=== PATIENT | male | born 2000 | race Caucasian/White ===

== ENCOUNTER 2020-02-22 20:17 | Emergency (ER) | payer SELFPAY ==
[2020-02-22 20:24] VITALS: BP 130/85; PULSE 98; RESP 16; TEMP 35.7; O2SAT 94; BMI 40.6
--- NOTE | 2020-02-22 22:09 | ED_ITS ---
HPI - General Adult General: Chief complaint: General Medical Stated complaint: bleeding belly button Time Seen by Provider: 02/22/20 22:02 Source: patient Mode of arrival: ambulatory Limitations: no limitations History of Present Illness: HPI narrative: Patient has tenderness, erythema and light drainage from the navel for the last 2 to 3 days. Patient appears well. Patient appears no acute distress. Review of Systems General: Reports: 10 or more systems reviewed and unremarkable except in HPI and below Skin/Breast: Reports: non-healing lesions Physical Exam Const: COMMON NORMALS: no acute distress and patient oriented x3 GENERAL APPEARANCE: cooperative HENMT: COMMON NORMALS: normocephalic and Normal external nose present HEAD & SCALP: normal to inspection and normocephalic NOSE: Normal external nose present MOUTH: Normal oral and palatal mucosa present Eye: GENERAL EYE: appearance normal, both eyes and all related structures Neck/C-Spine: COMMON NORMALS: full ROM Chest: COMMONS NORMALS: normal inspection of the chest Resp: COMMON NORMALS: normal respiratory effort EFFORT & INSPECTION: Yes able to speak in complete sentences Cardio: COMMON NORMALS: regular rate and regular rhythm RATE: regular rate RHYTHM: regular rhythm GI: COMMON NORMALS: non-tender Back/Pelvis: COMMON NORMALS: thoracic and lumbar spine normal to inspection Extremity: COMMON NORMALS: normal to inspection Neuro: COMMON NORMALS: patient oriented x3 and moves all extremities Psych: COMMON NORMALS: mental status grossly normal and cooperative Skin: NARRATIVE SKIN EXAM: Redness and drainage from the navel. Course Vital Signs: Vital signs: Vital Signs Temperature 96.3 F L 02/22/20 20:24 Pulse Rate 98 02/22/20 20:24 Respiratory Rate 16 02/22/20 20:24 Blood Pressure 130/85 02/22/20 20:24 Pulse Oximetry 94 02/22/20 20:24 MDM - General Adult MDM Narrative: Medical decision making narrative: Patient comes in with irritation to the navel. On exam patient has some erythema to the navel but does not extend out beyond its borders. Some drainage is also noted to the area. Differential diagnosis includes but not limited to candidiasis, cellulitis, contact dermatitis. Reviewed exam with patient with recommendations for treatment. Patient reports understanding agreed to plan. Discharge Plan Discharge Patient Disposition: Home Clinical Impression: Cellulitis of umbilicus Condition: Stable Prescriptions: New Bactrim DS 800-160 mg tablet 1 tab PO DAILY 10 Days Qty: 20 RF: 0 nystatin 100,000 unit/gram ointment 1 applic TOPICAL BID Qty: 15 RF: 0 Discharge Orders: Discharge Order (Routine); Ordered 02/22/20 Ordered By: Laci Marion Referrals: Eli Lovett FNP [Primary Care Provider] - Discharge Diet: Usual diet Discharge Activity: Increase activity as tolerated Patient Instructions: Cellulitis (ED) Activity Restrictions/Additional Instructions: Use medication as directed. Rinse daily but with copious amounts of water during showers. Try to avoid soap to the bellybutton. Use nystatin ointment twice a day until healed. You should see improvement within 7 days if not follow-up with primary care for recheck. Take antibiotic as directed. Return to the emergency department for new concerns. Coding Level of Care Code ED Commercial Loan Assistant for Jamison Blank
[2020-02-22] MEDS: sulfamethoxazole-trimeth DS 160-800 mg Tablet 1 TAB PO (22:20)
== END 2020-02-22 22:24 | disposition home or self-care (01) ==
PROVIDERS: Emergency Provider Nurse Practitioner Family; PCP Nurse Practitioner Family
DX: L03.316 Cellulitis of umbilicus (principal)
CPT/HCPCS: 12345; 99281; 99283

== ENCOUNTER → 2020-03-24 18:16 | Outpatient (BNVA) | payer OTHER, SELFPAY | PROVIDERS: PCP Nurse Practitioner Family; Visit Provider Nurse Practitioner | DX: Z20.828 Contact with and (suspected) exposure to other viral communicable diseases (principal) | CPT/HCPCS: 87635 ==

== ENCOUNTER 2020-04-21 06:08 | Emergency (ER) | payer SELFPAY ==
[2020-04-21 06:18] VITALS: BP 140/81; PULSE 81; RESP 17; TEMP 36.6; O2SAT 98; BMI 40.6
[2020-04-21 06:27] VITALS: BP 124/96; PULSE 94; RESP 18; O2SAT 96
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
[2020-04-21 07:47] VITALS: BP 165/100; PULSE 87; RESP 20; O2SAT 95
== END 2020-04-21 07:52 | disposition home or self-care (01) ==
PROVIDERS: Emergency Provider Family Medicine; PCP Nurse Practitioner Family
DX: R68.84 Jaw pain (principal); Y04.2XXA Assault by strike against or bumped into by another person, initial encounter
CPT/HCPCS: 12345; 70486; 99281; 99282

== ENCOUNTER → 2021-03-27 18:25 | Outpatient (BNVA) | payer OTHER, SELFPAY | PROVIDERS: PCP Nurse Practitioner Family; Visit Provider Registered Nurse Neonatal Intensive Care | DX: Z20.822 Contact with and (suspected) exposure to COVID-19 (principal) | CPT/HCPCS: 87635 ==

== ENCOUNTER 2022-01-16 10:54 | Emergency (ER) | payer SELFPAY ==
[2022-01-16 11:01] VITALS: BP 154/96; PULSE 79; RESP 16; TEMP 36.5; O2SAT 97; BMI 43.4
--- NOTE | 2022-01-16 11:12 | PC.NURSE ---
Pt was awaken about 0800 this morning with a sharp stabbing chest pain in the center of his chest that raidated into his back. He states he vomited 3-4 times this morning, he denies any injuries or any chest pain prior to this.
--- NOTE | 2022-01-16 11:15 | CTR_ITS ---
PROCEDURE INFORMATION: Exam: CTA Chest With Contrast Exam date and time: 01/16/2022 12:07 PM Age: 21 years old Clinical indication: Sternal or substernal pain; Additional info: Dissection TECHNIQUE: Imaging protocol: Computed tomographic angiography of the chest with contrast. 3D rendering (Not supervised by radiologist): MIP and/or 3D reconstructed images were created by the technologist. Radiation optimization: All CT scans at this facility use at least one of these dose optimization techniques: automated exposure control; mA and/or kV adjustment per patient size (includes targeted exams where dose is matched to clinical indication); or iterative reconstruction. Contrast material: OMNIPAQUE 350; Contrast volume: 95 ml; Contrast route: INTRAVENOUS (IV); COMPARISON: CR (CHEST, ) 01/16/2022 11:29 AM RADIATION DOSE METRICS: Total DLP (mGy-cm): 1357.08 FINDINGS: Pulmonary arteries: No central filling defects within the main pulmonary arteries through the first order segmental branches to suggest pulmonary embolism. Distal to this, the examination is inconclusive secondary to inadequate opacification of the distal pulmonary arteries. Aorta: Unremarkable. No aortic aneurysm. No aortic dissection. Lungs: Unremarkable. No consolidation. No masses. Pleural spaces: Unremarkable. No pneumothorax. No pleural effusion. Heart: Unremarkable. No cardiomegaly. No pericardial effusion. Lymph nodes: Unremarkable. No enlarged lymph nodes. Liver: There is a diffuse decrease in hepatic parenchymal density, consistent with fatty infiltration. Bones/joints: Unremarkable. No acute fracture. Soft tissues: Unremarkable. CT/CT angio chest [id number] IMPRESSION: 1. No central filling defects within the main pulmonary arteries through the first order segmental branches to suggest pulmonary embolism. Distal to this, the examination is inconclusive secondary to inadequate opacification of the distal pulmonary arteries. 2. Fatty infiltration of the liver.
--- NOTE | 2022-01-16 11:15 | XRR_ITS ---
PROCEDURE INFORMATION: Exam: XR Chest Exam date and time: 01/16/2022 11:29 AM Age: 21 years old Clinical indication: Pain; Chest pressure; Additional info: Chest pain TECHNIQUE: Imaging protocol: Radiologic exam of the chest. Views: 1 view. COMPARISON: CR Chest 1 [place] [id number] 07/22/2017 1:35 AM FINDINGS: Lungs: Unremarkable. No consolidation. Pleural spaces: Unremarkable. No pleural effusion. No pneumothorax. Heart/Mediastinum: Unremarkable. No cardiomegaly. Bones/joints: Unremarkable. XR/XR chest 1V portable [id number] IMPRESSION: No acute findings.
--- NOTE | 2022-01-16 11:16 | ECG_ITS ---
[facility] Test Date: 2022-01-16 Pat Name: Jane Saleh Department: Room: Gender: Male Manager Diversity: : 2000 Requested By: Wood Sims Order Number: [id number] Pam MD: Marlen Hernadez M.D. Measurements Intervals [place] Rate: 69 P: 44 ND: 138 QRS: 81 QRSD: 96 T: 55 QT: 368 QTc: 397 Interpretive Statements SINUS RHYTHM INCOMPLETE RIGHT BUNDLE BRANCH BLOCK [90+ ms QRS DURATION, TERMINAL R IN V1/V2, 40+ ms S IN I/aVL/V4/V5/V6] Compared to ECG 01/16/2022 10:58:55 Incomplete right bundle-branch block now present Sinus arrhythmia no longer present Electronically Signed On 01-16-2022 20:17:11 CDT by Marlen Hernadez M.D. [id number]
--- NOTE | 2022-01-16 11:17 | ED_ITS ---
HPI - Chest Pain General: Chief Complaint: Chest Pain Stated Complaint: Chest pain, vomitting, tired Time Seen by Provider: 01/16/22 11:05 History of Present Illness: 21-year-old presents due to chest pain. States this started this morning. Reports it is sharp and radiates to the back and between the shoulder blades. Does report some nausea and nonbloody nonbilious vomiting. Denies any abdominal pain diarrhea or constipation. Denies any exertional pleuritic component to pain. Denies lower extremity pain or swelling fevers or chills. Review of Systems Narrative: - CONSTITUTIONAL: Denies weight loss, fever and chills. - HEENT: Denies changes in vision and hearing. - RESPIRATORY: Denies SOB and cough. - CV: As above - GI: As above - : Denies dysuria and urinary frequency. - MSK: Denies myalgia and joint pain. - SKIN: Denies rash and pruritus. - NEUROLOGICAL: Denies headache, weakness, numbness and syncope. - PSYCHIATRIC: Denies suicidal ideation Physical Exam Narrative: EXAM NARRATIVE: - GENERAL: Alert and oriented x 3. No acute distress. Well-nourished. - EYES: EOMI. Anicteric. - HENT: Atraumatic, no C-spine tenderness. Moist mucous membranes. No scleral icterus. No cervical lymphadenopathy. - LUNGS: Clear to auscultation bilaterally. No accessory muscle use. Equal lung sounds bilaterally. No respiratory distress. - CARDIOVASCULAR: Regular rate and rhythm. No murmur. No JVD. - ABDOMEN: Soft, non-tender and non-distended. Negative CVA tenderness bilaterally, no rebound or guarding, negative Benites sign. No palpable masses. - EXTREMITIES: No edema. Non-tender. - SKIN: No rashes or lesions. Warm. - NEUROLOGIC: No meningismus or focal neurological deficits. CN II-XII grossly intact. - PSYCHIATRIC: Cooperative. Appropriate mood and affect. Course Vital Signs: Vital signs: Vital Signs Temperature 97.7 F 01/16/22 11:01 Pulse Rate 74 01/16/22 12:00 Respiratory Rate 16 01/16/22 12:00 Blood Pressure 198/94 01/16/22 12:00 Pulse Oximetry 97 01/16/22 12:00 MDM - Chest Pain Medical Decision Making 21-year-old presents with chest pain nausea and vomiting. Denies any abdominal pain. Physical exam unremarkable. Does complain pain radiates to his back however. CTA does not reveal any sign of dissection PE or other acute abnormality. EKG and troponins do not reveal any sign of acute ischemia or other acute abnormality. Lab work unremarkable except for very minor LFT elevation for which outpatient follow-up was recommended however he has a negative Benites sign and no abdominal tenderness. At this time do not see any signs of obstruction or other acute abdominal etiology and I do believe advanced abdominal imaging is required. Tolerated p.o. challenge after Zofran. Prescription for Pepcid and Zofran provided. At this time I believe patient would be safe for discharge and outpatient follow-up. Return precautions provided. Plan was reviewed with the patient who expressed understanding. Questions answered. Patient will follow up with PCP. Patient discharged in stable condition. Lab Data : 01/16/22 11:54 01/16/22 11:54 Radiology Impressions Chest CTA 01/16/22 11:15 IMPRESSION: 1. No central filling defects within the main pulmonary arteries through the first order segmental branches to suggest pulmonary embolism. Distal to this, the examination is inconclusive secondary to inadequate opacification of the distal pulmonary arteries. 2. Fatty infiltration of the liver. Chest X-Ray 01/16/22 11:15 IMPRESSION: No acute findings. Laboratory Results WBC 9.2 10^3/uL (4.0-10.0) 01/16/22 11:54 RBC 5.08 10^6/uL (4.1-5.3) 01/16/22 11:54 Hgb 14.4 g/dL (11.7-16.6) 01/16/22 11:54 Hct 45.4 % (42.0-52.0) 01/16/22 11:54 MCV 89.4 fl (80-94) 01/16/22 11:54 MCH 28.3 pg (28.0-34.0) 01/16/22 11:54 MCHC 31.7 g/dL (30.0-36.0) 01/16/22 11:54 RDW 13.0 % (12.1-15.1) 01/16/22 11:54 Plt Count 237 10^3/cmm (130-400) 01/16/22 11:54 MPV 10.4 fL (7.4-10.4) 01/16/22 11:54 Neut % (Auto) 66.8 % 01/16/22 11:54 Lymph % (Auto) 21.6 % 01/16/22 11:54 [place] % (Auto) 9.0 % 01/16/22 11:54 Eos % (Auto) 1.7 % 01/16/22 11:54 Baso % (Auto) 0.4 % 01/16/22 11:54 Neut # (Auto) 6.10 10^3/uL (1.8-7.7) 01/16/22 11:54 Lymph # (Auto) 2.0 10^3/uL (0.8-4.8) 01/16/22 11:54 [place] # (Auto) 0.8 10^3/uL (0.2-0.9) 01/16/22 11:54 Eos # (Auto) 0.2 10^3/uL (0.0-0.8) 01/16/22 11:54 Baso # (Auto) 0.0 10^3/uL (0.0-0.1) 01/16/22 11:54 Nucleated RBC % (auto) 0 % 01/16/22 11:54 Nucleated RBCs # 0.0 /100WBC 01/16/22 11:54 Sodium 132 mmol/L (136-145) L 01/16/22 11:54 Potassium 3.9 mmol/L (3.5-5.1) 01/16/22 11:54 Chloride 98 mmol/L (98-107) 01/16/22 11:54 Carbon Dioxide 22 mmol/L (22-29) 01/16/22 11:54 Anion Gap 15.9 (5-19) 01/16/22 11:54 BUN 17 mg/dL (6-20) 01/16/22 11:54 Creatinine 0.9 mg/dL (0.7-1.2) 01/16/22 11:54 GFR Calculation 104.6 mL/min (90-130) 01/16/22 11:54 Glucose 89 mg/dL (65-115) 01/16/22 11:54 Calculated Osmolality 275 mOsm/kg (285-295) L 01/16/22 11:54 Calcium 9.7 mg/dL (8.5-10.5) 01/16/22 11:54 Total Bilirubin 0.2 mg/dL (0.15-1.2) 01/16/22 11:54 AST 49 U/L (0-40) H 01/16/22 11:54 ALT 94 U/L (0-41) H 01/16/22 11:54 Alkaline Phosphatase 98 IU/L (40-130) 01/16/22 11:54 Troponin T Baseline 6 ng/L (0-15) 01/16/22 11:54 Total Protein 7.4 g/dL (6.6-8.7) 01/16/22 11:54 Albumin 4.5 g/dL (3.5-5.2) 01/16/22 11:54 Globulin 2.9 g/dL (1.3-4.6) 01/16/22 11:54 Lipase 31 U/L (13-60) 01/16/22 11:54 SARS-CoV-2 Ag (Rapid) Negative (Negative) 01/16/22 12:44 EKG Data EKG 1: Other EKG comments: Normal sinus rhythm with sinus arrhythmia, rate of 73, no signs of Brugada, WPW, prolonged QT, HOCM, or acute ischemia Discharge Plan Discharge Patient Disposition: Home Clinical Impression: Chest pain, Nausea Condition: Stable Prescriptions: New Pepcid 20 mg tablet 20 mg PO DAILY 14 Days Qty: 14 0RF ondansetron 4 mg tablet,disintegrating 4 mg PO TID PRN (Reason: nausea and vomiting) 3 Days Qty: 10 0RF Discharge Orders: Discharge ED (Routine); Ordered 01/16/22 Ordered By: Wood Sims Referrals: Bony,Eli RECORD MAKER [Primary Care Provider] - 1-3 days Patient Instructions: Chest Pain (ED), Acute Nausea and Vomiting (ED), Opioid Safety Coding Level of Care Code ED Resolution Specialist for Jamison Blank
[2022-01-16] MEDS: sodium chloride 0.9% 1,000 ML 999 ML IV (11:53)
[2022-01-16] MEDS: ondansetron 2 mg/ML SDV 2 mL 4 MG IVP (11:53)
[2022-01-16] MEDS: lidocaine 2% viscous 15 ML, aluminum-mag hydrox-simethicon 30 ML, sucralfate oral liq 1 GM PO (11:58)
[2022-01-16 12:00] VITALS: BP 198/94; PULSE 74; RESP 16; O2SAT 97
[2022-01-16 12:01] LABS: Basophils % 0.4 %; Eosinophils # 0.2 10^3/uL (0.0-0.8); Eosinophils % 1.7 %; Hematocrit 45.4 % (42.0-52.0); Hemoglobin 14.4 g/dL (11.7-16.6); Lymphocytes % 21.6 %; Mean Corpuscular HGB Conc 31.7 g/dL (30.0-36.0); Mean Corpuscular Hemoglobin 28.3 pg (28.0-34.0); Mean Corpuscular Volume 89.4 fl (80-94); Mean Platelet Volume 10.4 fL (7.4-10.4); Monocytes # 0.8 10^3/uL (0.2-0.9); Neutrophils % 66.8 %; Nucleated Red Blood Cells % 0 %; Platelet Count 237 10^3/cmm (130-400); Red Blood Count 5.08 10^6/uL (4.1-5.3); White Blood Count 9.2 10^3/uL (4.0-10.0)
[2022-01-16 12:24] LABS: Troponin(5th) Baseline 6 ng/L (0-15)
[2022-01-16 12:31] LABS: Alanine Aminotransferase 94 U/L (0-41); Albumin Level 4.5 g/dL (3.5-5.2); Alkaline Phosphatase 98 IU/L (40-130); Anion Gap 15.9 (5-19); Aspartate Amino Transferase 49 U/L (0-40); Blood Urea Nitrogen 17 mg/dL (6-20); Calcium 9.7 mg/dL (8.5-10.5); Carbon Dioxide 22 mmol/L (22-29); Chloride 98 mmol/L (98-107); Globulin 2.9 g/dL (1.3-4.6); Glomerular Filtration Rate 104.6 mL/min (90-130); Glucose 89 mg/dL (65-115); Lipase 31 U/L (13-60); Osmolality Calculated 275 mOsm/kg (285-295); Potassium 3.9 mmol/L (3.5-5.1); Sodium 132 mmol/L (136-145); Total Bilirubin 0.2 mg/dL (0.15-1.2); Total Protein 7.4 g/dL (6.6-8.7)
[2022-01-16] MEDS: acetaminophen 500 mg Tablet PO (12:57)
--- NOTE | 2022-01-16 13:16 | ECG_ITS ---
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 Measurements Intervals [place] Rate: 76 P: 62 WV: 152 QRS: 81 QRSD: 99 T: 47 QT: 343 QTc: 387 Interpretive Statements SINUS RHYTHM WITH MARKED SINUS ARRHYTHMIA POSSIBLE RIGHT VENTRICULAR CONDUCTION DELAY [RSR (QR) IN V1/V2] Compared to ECG 01/16/2022 11:36:01 Incomplete right bundle-branch block no longer present Electronically Signed On 01-16-2022 20:21:33 CDT by Marlen Hernadez M.D. [id number]
[2022-01-16 14:04] LABS: SARS Covid-2 Antigen Negative (Negative)
[2022-01-16 14:40] VITALS: BP 140/70; PULSE 87; RESP 16; O2SAT 97
[2022-01-16 14:44] VITALS: BP 140/70; PULSE 82; RESP 16; O2SAT 95
[2022-01-16 14:59] LABS: Troponin 5 2HR Delta 0 ABS# (0-10)
--- NOTE | 2022-01-16 17:16 | ECG_ITS ---
[facility] Test Date: 2022-01-16 Pat Name: Jane Saleh Department: Room: Gender: Male Shelter Monitor: : 2000 Requested By: Wood Sims Order Number: [id number] Pam MD: Marlen Hernadez M.D. Measurements Intervals [place] Rate: 73 P: 58 NM: 142 QRS: 78 QRSD: 96 T: 51 QT: 356 QTc: 394 Interpretive Statements SINUS RHYTHM WITH SINUS ARRHYTHMIA POSSIBLE RIGHT VENTRICULAR CONDUCTION DELAY [RSR (QR) IN V1/V2] INTERPRETATION BASED ON A DEFAULT AGE OF 40 YEARS Compared to ECG 05/04/2019 15:46:48 No significant changes Electronically Signed On 01-16-2022 20:21:28 CDT by Marlen Hernadez M.D. [id number]
== END 2022-01-16 14:46 | disposition home or self-care (01) ==
PROVIDERS: Emergency Provider Emergency Medicine; PCP Nurse Practitioner Family
DX: R07.9 Chest pain, unspecified (principal); R11.0 Nausea; Z20.822 Contact with and (suspected) exposure to COVID-19
CPT/HCPCS: 71045; 71275; 80053; 83690; 84484; 85025; 87426; 93005; 96374; 99285; J2405; J7030; Q9967

== ENCOUNTER 2022-01-24 15:59 | Emergency (ER) | payer SELFPAY ==
[2022-01-24] VITALS (7 sets, daily range): BP systolic 131–156; BP diastolic 83–98; PULSE 75–97; RESP 16; TEMP 36.6; O2SAT 22–96; BMI 43.4
--- NOTE | 2022-01-24 16:46 | XRR_ITS ---
PROCEDURE INFORMATION: Exam: XR Abdomen Exam date and time: 01/24/2022 4:55 PM Age: 22 years old Clinical indication: Abdominal pain; Prior surgery; Surgery date: 6+ months; Surgery type: Appy; Patient HX: C/O epigastric pain w n/v/d TECHNIQUE: Imaging protocol: Radiologic exam of the abdomen. Views: Frontal supine view of the abdomen. 1 View. COMPARISON: CT abdomen pelvis w con* [id number] 03/15/2018 5:14 AM FINDINGS: Gastrointestinal tract: Normal. No bowel dilation. Bones/joints: Unremarkable. XR/XR KUB portable [id number] IMPRESSION: No acute findings.
--- NOTE | 2022-01-24 16:50 | W.ED.ABDPA2 ---
Documented by User: Medardo DO Raymon 01/24/22 17:55 HPI - Abdominal Pain General: Chief Complaint: Abdominal Pain Stated Complaint: Upper ABD pain Time Seen by Provider: 01/24/22 16:42 History of Present Illness: Patient presents with an episode of epigastric pain and then vomiting. He reports that that was earlier today then he had a second episode of a similar epigastric pain that he vomited improved. Then he had a another round epigastric pain about 15 minutes after that and the pain resolved. Patient presents to be evaluated. He at this time he denies any pain. He denies any nausea. Patient denies any fever, chills, cough, shortness of breath. Patient reports any new foods. Patient was started on famotidine and reports he also started on Nexium. Patient denies any diarrhea. He has no known sick contacts. Associated Symptoms: Reports nausea and vomiting; Denies chills, constipation, diarrhea, dysuria and fever(s) Review of Systems Const: Denies: fever(s), chills or malaise Eyes: Denies: change in vision ENMT: Denies: throat pain Card: Denies: chest pain or palpitations Resp: Denies: dyspnea or productive cough GI: Reports: abdominal pain, nausea and vomiting; Denies: diarrhea or constipation : Denies: flank pain, difficulty urinating or dysuria Musc: Reports: back pain; Denies: neck pain or extremity swelling Neuro: Denies: headache(s) or dizziness Psych: Denies: anxiety or depression Physical Exam Const: COMMON NORMALS: no acute distress, patient oriented x3, no limitations, healthy appearing and alert Resp: COMMON NORMALS: normal respiratory effort, No retractions, No use of accessory muscles and clear to auscultation bilaterally AUSCULTATION: clear to auscultation bilaterally Cardio: COMMON NORMALS: regular rate and regular rhythm RATE: regular rate RHYTHM: regular rhythm GI: COMMON NORMALS: Soft to palpation PALPATION: Yes Soft to palpation and Yes Tenderness to palpation present (GI) (Minimal) Details: other (Epigastric) : COMMON NORMALS: Yes no CVA tenderness BLADDER/KIDNEY EXAM: Yes no CVA tenderness Back/Pelvis: COMMON NORMALS: no CVA tenderness and thoraco-lumbar ROM normal Extremity: COMMON NORMALS: normal to inspection, full ROM and capillary refill normal Neuro: COMMON NORMALS: patient oriented x3, CN's II-XII intact bilaterally, moves all extremities and no focal motor deficits SENSORIUM/ORIENTATION: Yes alert Psych: COMMON NORMALS: mental status grossly normal, Normal thought process present and cooperative THOUGHT PROCESS: Normal thought process present Skin: COMMON NORMALS: no rashes or lesions noted and no wounds GENERAL SKIN EXAM: no rashes or lesions noted Course Vital Signs: Vital signs: Vital Signs Temperature 98 F 01/24/22 16:12 Pulse Rate 84 01/24/22 19:00 Respiratory Rate 16 01/24/22 16:12 Blood Pressure 156/97 01/24/22 19:00 Pulse Oximetry 95 01/24/22 18:00 Oxygen Delivery Me thod 01/24/22 18:00 MDM - Abdominal Pain Medical Decision Making Patient with no further epigastric pain or vomiting while in the ER. Patient with negative chest x-ray. Patient lipase and CMP is still pending. Patient to be handed over to Dr. Damon while waiting labs to determine if further outpatient evaluation will be needed. Patient was stable throughout stay Lab Data : 01/24/22 17:32 01/24/22 17:32 Labs/Radiology: Radiology Impressions KUB X-Ray 01/24/22 16:46 IMPRESSION: No acute findings. Laboratory Results WBC 9.6 10^3/uL (4.0-10.0) 01/24/22 17: RBC 4.98 10^6/uL (4.1-5.3) 01/24/22 17:32 Hgb 14.3 g/dL (11.7-16.6) 01/24/22 17:32 Hct 43.6 % (42.0-52.0) 01/24/22 17:32 MCV 87.6 fl (80-94) 01/24/22 17:32 MCH 28.7 pg (28.0-34.0) 01/24/22 17: MCHC 32.8 g/dL (30.0-36.0) 01/24/22 17: RDW 13.2 % (12.1-15.1) 01/24/22 17:32 Plt Count 230 10^3/cmm (130-400) 01/24/22 17:32 MPV 10.2 fL (7.4-10.4) 01/24/22 17:32 Neut % (Auto) 75.8 % 01/24/22 17:32 Lymph % (Auto) 15.1 % 01/24/22 17:32 Mcdowell % (Auto) 6.3 % 01/24/22 17:32 Eos % (Auto) 1.7 % 01/24/22 17:32 Baso % (Auto) 0.5 % 01/24/22 17:32 Neut # (Auto) 7.28 10^3/uL (1.8-7.7) 01/24/22 17:32 Lymph # (Auto) 1.5 10^3/uL (0.8-4.8) 01/24/22 17:32 [place] # (Auto) 0.6 10^3/uL (0.2-0.9) 01/24/22 17:32 Eos # (Auto) 0.2 10^3/uL (0.0-0.8) 01/24/22 17: Baso # (Auto) 0.1 10^3/uL (0.0-0.1) 01/24/22 17:32 Nucleated RBC % (auto) 0 % 01/24/22 17: Nucleated RBCs # 0.0 /100WBC 01/24/22 17:32 Sodium 140 mmol/L (136-145) 01/24/22 17:32 Potassium 4.3 mmol/L (3.5-5.1) 01/24/22 17:32 Chloride 101 mmol/L (98-107) 01/24/22 17:32 Carbon Dioxide 22 mmol/L (22-29) 01/24/22 17:32 Anion Gap 21.3 (5-19) H 01/24/22 17:32 BUN 13 mg/dL (6-20) 01/24/22 17:32 Creatinine 0.9 mg/dL (0.7-1.2) 01/24/22 17:32 GFR Calculation 103.7 mL/min (90-130) 01/24/22 17:32 Glucose 98 mg/dL (65-115) 01/24/22 17:32 Calculated Osmolality 290 mOsm/kg (285-295) 01/24/22 17:32 Calcium 9.6 mg/dL (8.5-10.5) 01/24/22 17:32 Total Bilirubin 0.2 mg/dL (0.15-1.2) 01/24/22 17:32 AST 90 U/L (0-40) H 01/24/22 17:32 ALT 130 U/L (0-41) H 01/24/22 17:32 Alkaline Phosphatase 107 IU/L (40-130) 01/24/22 17:32 Total Protein 7.7 g/dL (6.6-8.7) 01/24/22 17:32 Albumin 4.7 g/dL (3.5-5.2) 01/24/22 17:32 Globulin 3.0 g/dL (1.3-4.6) 01/24/22 17:32 Lipase 32 U/L (13-60) 01/24/22 17:32 Discharge Plan Discharge Patient Disposition: Home Clinical Impression: Abdominal pain Qualifiers: Abdominal location: epigastric Qualified Code(s): R10.13 - Epigastric pain Condition: Stable Prescriptions: New Prevacid 30 mg capsule,delayed release(DR/EC) 30 mg PO DAILY Qty: 30 0RF Carafate 1 gram tablet 1 g PO TID 28 Days Qty: 84 0RF Discontinued famotidine [Pepcid] 20 mg tablet 20 mg PO DAILY 14 Days Qty: 14 0RF Discharge Orders: Discharge ED (Routine); Ordered 01/24/22 Ordered By: Van Damon Referrals: Jignesh Wooten MD [Physician] - 7-10 days Lovett,TAMRA Benitez [Primary Care Provider] - 1-3 days Patient Instructions: Gastritis (ED), Abdominal Pain (ED) Activity Restrictions/Additional Instructions: Case management has been ordered to refer you to general surgery for possible upper endoscopy, as well as set you up for an outpatient ultrasound of the gallbladder. You should get a call from them at the beginning of the week. Medications as directed. Return for fever greater than 100, vomiting liquids or medications, worsening pain despite treatment, any other concerning symptoms. Coding Level of Care Code ED Cloth Mercerizer Back Tender for Chg Fwd Exam Comprehensive Documented by User: Van Chang Nelson, 01/24/22 19:57 HPI - Abdominal Pain General: Chief Complaint: Abdominal Pain Stated Complaint: Upper ABD pain Time Seen by Provider: 01/24/22 16:42 Course Vital Signs: Vital signs: Vital Signs Temperature 98 F 01/24/22 16:12 Pulse Rate 84 01/24/22 19:00 Respiratory Rate 16 01/24/22 16:12 Blood Pressure 156/97 01/24/22 19:00 Pulse Oximetry 95 01/24/22 18:00 Oxygen Delivery Me thod 01/24/22 18:00 MDM - Abdominal Pain Medical Decision Making Patient with no further epigastric pain or vomiting while in the ER. Patient with negative chest x-ray. Patient lipase and CMP is still pending. Patient to be handed over to Dr. Damon while waiting labs to determine if further outpatient evaluation will be needed. Patient was stable throughout stay 22-year-old male checked out to me by Dr. Ennis. He remains asymptomatic. CBC is normal. BMP is normal. He has a stable mild elevation in his LFTs, no elevation in his bilirubin. He is pain-free currently. Pepcid will be discontinued in favor of Prevacid plus Carafate, as this seems to be like a gastritis versus ulcer type situation. Ultrasound of the gallbladder has been ordered as an outpatient as well. Case management will refer him to surgery to see if EGD would be needed should he fail medical therapy. Lab Data : 01/24/22 17:32 01/24/22 17:32 Labs/Radiology: Radiology Impressions KUB X-Ray 01/24/22 16:46 IMPRESSION: No acute findings. Laboratory Results WBC 9.6 10^3/uL (4.0-10.0) 01/24/22 17:32 RBC 4.98 10^6/uL (4.1-5.3) 01/24/22 17:32 Hgb 14.3 g/dL (11.7-16.6) 01/24/22 17:32 Hct 43.6 % (42.0-52.0) 01/24/22 17:32 MCV 87.6 fl (80-94) 01/24/22 17:32 MCH 28.7 pg (28.0-34.0) 01/24/22 17: MCHC 32.8 g/dL (30.0-36.0) 01/24/22 17: RDW 13.2 % (12.1-15.1) 01/24/22 17:32 Plt Count 230 10^3/cmm (130-400) 01/24/22 17:32 MPV 10.2 fL (7.4-10.4) 01/24/22 17:32 Neut % (Auto) 75.8 % 01/24/22 17:32 Lymph % (Auto) 15.1 % 01/24/22 17:32 Mcdowell % (Auto) 6.3 % 01/24/22 17:32 Eos % (Auto) 1.7 % 01/24/22 17: Baso % (Auto) 0.5 % 01/24/22 17:32 Neut # (Auto) 7.28 10^3/uL (1.8-7.7) 01/24/22 17:32 Lymph # (Auto) 1.5 10^3/uL (0.8-4.8) 01/24/22 17:32 [place] # (Auto) 0.6 10^3/uL (0.2-0.9) 01/24/22 17:32 Eos # (Auto) 0.2 10^3/uL (0.0-0.8) 01/24/22 17:32 Baso # (Auto) 0.1 10^3/uL (0.0-0.1) 01/24/22 17: Nucleated RBC % (auto) 0 % 01/24/22 17: Nucleated RBCs # 0.0 /100WBC 01/24/22 17:32 Sodium 140 mmol/L (136-145) 01/24/22 17:32 Potassium 4.3 mmol/L (3.5-5.1) 01/24/22 17: Chloride 101 mmol/L (98-107) 01/24/22 17: Carbon Dioxide 22 mmol/L (22-29) 01/24/22 17:32 Anion Gap 21.3 (5-19) H 01/24/22 17:32 BUN 13 mg/dL (6-20) 01/24/22 17:32 Creatinine 0.9 mg/dL (0.7-1.2) 01/24/22 17:32 GFR Calculation 103.7 mL/min (90-130) 01/24/22 17:32 Glucose 98 mg/dL (65-115) 01/24/22 17:32 Calculated Osmolality 290 mOsm/kg (285-295) 01/24/22 17:32 Calcium 9.6 mg/dL (8.5-10.5) 01/24/22 17:32 Total Bilirubin 0.2 mg/dL (0.15-1.2) 01/24/22 17:32 AST 90 U/L (0-40) H 01/24/22 17:32 ALT 130 U/L (0-41) H 01/24/22 17:32 Alkaline Phosphatase 107 IU/L (40-130) 01/24/22 17:32 Total Protein 7.7 g/dL (6.6-8.7) 01/24/22 17:32 Albumin 4.7 g/dL (3.5-5.2) 01/24/22 17:32 Globulin 3.0 g/dL (1.3-4.6) 01/24/22 17:32 Lipase 32 U/L (13-60) 01/24/22 17:32 Discharge Plan Discharge Patient Disposition: Home Clinical Impression: Abdominal pain Qualifiers: Abdominal location: epigastric Qualified Code(s): R10.13 - Epigastric pain Condition: Stable Prescriptions: New Prevacid 30 mg capsule,delayed release(DR/EC) 30 mg PO DAILY Qty: 30 0RF Carafate 1 gram tablet 1 g PO TID 28 Days Qty: 84 0RF Discontinued famotidine [Pepcid] 20 mg tablet 20 mg PO DAILY 14 Days Qty: 14 0RF Discharge Orders: Discharge ED (Routine); Ordered 01/24/22 Ordered By: Van Damon Referrals: Jignesh Wooten MD [Physician] - 7-10 days Lovett,TAMRA Benitez [Primary Care Provider] - 1-3 days Patient Instructions: Gastritis (ED), Abdominal Pain (ED) Activity Restrictions/Additional Instructions: Case management has been ordered to refer you to general surgery for possible upper endoscopy, as well as set you up for an outpatient ultrasound of the gallbladder. You should get a call from them at the beginning of the week. Medications as directed. Return for fever greater than 100, vomiting liquids or medications, worsening pain despite treatment, any other concerning symptoms. Coding Level of Care Code ED Cloth Mercerizer Back Tender for Chg Fwd Exam Comprehensive
[2022-01-24 17:51] LABS: Basophils # 0.1 10^3/uL (0.0-0.1); Basophils % 0.5 %; Eosinophils # 0.2 10^3/uL (0.0-0.8); Eosinophils % 1.7 %; Hematocrit 43.6 % (42.0-52.0); Hemoglobin 14.3 g/dL (11.7-16.6); Lymphocytes # 1.5 10^3/uL (0.8-4.8); Lymphocytes % 15.1 %; Mean Corpuscular HGB Conc 32.8 g/dL (30.0-36.0); Mean Corpuscular Hemoglobin 28.7 pg (28.0-34.0); Mean Corpuscular Volume 87.6 fl (80-94); Mean Platelet Volume 10.2 fL (7.4-10.4); Monocytes # 0.6 10^3/uL (0.2-0.9); Monocytes % 6.3 %; Neutrophils # 7.28 10^3/uL (1.8-7.7); Neutrophils % 75.8 %; Nucleated Red Blood Cells % 0 %; Platelet Count 230 10^3/cmm (130-400); Red Blood Count 4.98 10^6/uL (4.1-5.3); Red Cell Distribution Width 13.2 % (12.1-15.1); White Blood Count 9.6 10^3/uL (4.0-10.0)
[2022-01-24 18:47] LABS: Albumin Level 4.7 g/dL (3.5-5.2); Alkaline Phosphatase 107 IU/L (40-130); Anion Gap 21.3 (5-19); Aspartate Amino Transferase 90 U/L (0-40); Blood Urea Nitrogen 13 mg/dL (6-20); Calcium 9.6 mg/dL (8.5-10.5); Carbon Dioxide 22 mmol/L (22-29); Chloride 101 mmol/L (98-107); Glomerular Filtration Rate 103.7 mL/min (90-130); Glucose 98 mg/dL (65-115); Lipase 32 U/L (13-60); Osmolality Calculated 290 mOsm/kg (285-295); Potassium 4.3 mmol/L (3.5-5.1); Sodium 140 mmol/L (136-145); Total Bilirubin 0.2 mg/dL (0.15-1.2); Total Protein 7.7 g/dL (6.6-8.7)
[2022-01-24 18:59] LABS: Alanine Aminotransferase 130 U/L (0-41)
--- NOTE | 2022-01-25 08:38 | DCPLANNER ---
Addendum entered by Tiana Jackson 03/19/22 12:57: Centralized scheduling stated waiting on project financial analyst clearance before scheduling. Addendum entered by Tiana Jackson 02/25/22 08:38: apartment hotel manager had message from clinic stating that due to patient having an outstanding bill that a letter was sent to patient to speak with project financial analyst before an appointment will be scheduled. Original Note: apartment hotel manager had message to schedule a follow up appointment for patient with general surgery. apartment hotel manager sent patients information to the front office staff at general surgery. Patients information will be printed and reviewed. Clinic will call patient with appointment information. apartment hotel manager also had message to schedule an outpatient US gallbladder. apartment hotel manager sent signed order to centralized scheduling who will call patient with appointment information.
== END 2022-01-24 20:34 | disposition home or self-care (01) ==
PROVIDERS: Student in an Organized Health Care Education/Training Program; Emergency Provider Emergency Medicine; PCP Nurse Practitioner Family
DX: R10.13 Epigastric pain (principal)
CPT/HCPCS: 74018; 80053; 83690; 85025; 99284

== ENCOUNTER 2022-08-23 10:22 | Inpatient (IN) | payer SELFPAY ==
[2022-08-23] VITALS (76 sets, daily range): BP systolic 112–224; BP diastolic 75–158; PULSE 84–126; RESP 14–18; TEMP 36.4; O2SAT 87–100; BMI 47.5
--- NOTE | 2022-08-23 10:35 | ECG_ITS ---
[facility] Test Date: 2022-08-23 Pat Name: Jane Saleh Department: Room: Gender: Male Manager Visual: : 2000 Requested By: Christiano Serna Order Number: [id number] Pam MD: Navneet Moser M.D. Measurements Intervals [place] Rate: 87 P: 54 [place]: 144 QRS: 74 QRSD: 97 T: 23 QT: 342 QTc: 413 Interpretive Statements SINUS RHYTHM NONSPECIFIC T-WAVE ABNORMALITY Compared to ECG 01/16/2022 13:11:12 T-wave abnormality now present Sinus arrhythmia no longer present Electronically Signed On 08-23-2022 17:30:06 CLINICAL SCIENTIST by Navneet Moser M.D. [id number]
--- NOTE | 2022-08-23 11:17 | US_ITS ---
WS: [id number] RIGHT UPPER QUADRANT ULTRASOUND HISTORY: RUQ abd pain COMPARISON: 05/04/2019 Liver: 17.5 cm in length. Mildly enlarged liver. Marked attenuation throughout the liver. The entire liver is not visualized. No bile duct dilatation. Portal Vein: Not adequately visualized. Gallbladder: Normally distended. No stones identified. CBD: 0.5 cm Pancreas: Not visualized. Right kidney: 12.8 cm in length. Normal size. Poorly visualized. Aorta and IVC: Unremarkable abdominal aorta and IVC. No ascites. US/US gall bladder [id number] IMPRESSION: 1. Limited RIGHT upper quadrant evaluation due to body habitus. 2. No cholelithiasis identified. 3. Mild hepatomegaly with diffuse hepatic steatosis. 4. Pancreas not visualized.
--- NOTE | 2022-08-23 11:17 | W.ED.ABDPA2 ---
HPI - Abdominal Pain General: Chief Complaint: Abdominal Pain Stated Complaint: Abd pain Time Seen by Provider: 08/23/22 10:37 Source: patient Mode of arrival: ambulatory History of Present Illness: 22-year-old male who presents to the emergency room with complaints of epigastric pain right upper quadrant pain for the last 2 days is progressively worsening. He localizes the pain to the right upper quadrant he has not really noticed anything that makes it better or worse he has not noticed any association with eating he denies any hematochezia melena hematemesis coffee-ground emesis no fever sweats or chills. Currently is reporting the pain at 10 of 10. The only previous abdominal surgery was an appendectomy. MD elicited complaint: abdominal pain Onset (ago): day(s) (2) Pain Consistency: constant Location: Epigastric and RUQ Quality: cramping and sharp Radiation: none Exacerbating factors: nothing Relieving factors: nothing Associated Symptoms: Reports anorexia, GI cramping, nausea and poor appetite; Denies belching, bloating, change in bowel habits, change in stool character, chills, coffee ground emesis, constipation, diarrhea, dyspepsia, dysuria, excessive flatus, fever(s), heartburn, hematochezia, hematuria, hematemesis, fecal incontinence, loose stools, melena, syncope and vomiting Review of Systems Const: Denies: fever(s) or chills ENMT: Denies: throat pain, ear or mastoid pain, nasal discharge or nasal congestion Card: Denies: syncope Resp: Denies: dyspnea, productive cough or non-productive cough GI: Reports: abdominal pain, nausea and GI cramping; Denies: vomiting, hematemesis, coffee ground emesis, heartburn, diarrhea, constipation, bloating, belching, excessive flatus, fecal incontinence, change in bowel habits, change in stool character, hematochezia or melena : Denies: dysuria, urinary frequency, urinary urgency or hematuria Skin/Breast: Denies: rash or pruritus PFSH ED PFSH: Medical History No significant past medical history Surgical History History of appendectomy Family History Other Cholelithiasis Social History Smoking and tobacco status: never smoked Alcohol intake: current Alcohol intake frequency: holidays/special occasions only Alcohol use comment: Last time had 4-5 beers during [employer]. Substance/Drug Use: never Physical Exam Const: GENERAL APPEARANCE: cooperative and comfortable ORIENTATION/CONSCIOUSNESS: Yes awake, Yes oriented to person, Yes oriented to place and Yes oriented to time HENMT: COMMON NORMALS: normocephalic, atraumatic and hearing grossly normal bilaterally HEAD & SCALP: normocephalic and atraumatic Resp: COMMON NORMALS: normal respiratory effort, No retractions, No use of accessory muscles and clear to auscultation bilaterally AUSCULTATION: clear to auscultation bilaterally Cardio: COMMON NORMALS: regular rate, regular rhythm and No murmurs present (Cardio) RATE: regular rate RHYTHM: regular rhythm GI: COMMON NORMALS: No hepatosplenomegaly present AUSCULTATION: Yes normoactive bowel sounds PALPATION: Yes Tenderness to palpation present (GI) (Epigastric) Details: RUQ, No Guarding due to palpation present (GI) and Yes No hepatosplenomegaly present Extremity: COMMON NORMALS: normal to inspection, capillary refill normal, no clubbing, cyanosis or edema, no calf tenderness and no pedal edema Neuro: SENSORIUM/ORIENTATION: Yes oriented to person, Yes oriented to place and Yes oriented to time Skin: COMMON NORMALS: no rashes or lesions noted GENERAL SKIN EXAM: no rashes or lesions noted Course Vital Signs: Vital signs: Vital Signs Temperature 98.1 F 08/24/22 08:00 Pulse Rate 108 H 08/24/22 08:00 Respiratory Rate 22 H 08/24/22 08:10 Blood Pressure 120/86 08/24/22 08:00 Pulse Oximetry 91 08/24/22 08:00 Oxygen Delivery Me thod 08/24/22 08:00 MDM - Abdominal Pain Medical Decision Making Acute pancreatitis. Patient has known cholelithiasis MRCP shows no ductal stones. They are unable to evaluate the common bile duct on ultrasound due to his body habitus. He is given given fluids and pain medications pain is improved we will admit discussed with hospitalist orders written Medical Records I reviewed the patient's medical records. Lab Data I reviewed the patient's lab results. 08/24/22 05:48 08/24/22 05:48 Labs/Radiology: Radiology Impressions Gallbladder Ultrasound 08/23/22 11:17 IMPRESSION: 1. Limited RIGHT upper quadrant evaluation due to body habitus. 2. No cholelithiasis identified. 3. Mild hepatomegaly with diffuse hepatic steatosis. 4. Pancreas not visualized. Abdomen/Pelvis CT 08/23/22 12:22 IMPRESSION: 1. Cholelithiasis. There is a single stone near the neck of the gallbladder. 2. Very mild peripancreatic edema and a small amount of edema and fluid adjacent to the duodenal C-loop. Favor mild changes of acute pancreatitis are responsible for these changes. There is a very small echogenic focus measuring 3 mm in the duodenum. Calcification is closed to the expected location of the ampulla of the Vater. This can could be potentially a recently extruded stone or nearly extruded stone from the common bile duct. 3. Prior appendectomy. 4. Hepatic steatosis. Cholangiopancreatography MRI 08/23/22 14:46 IMPRESSION: 1. Sequela of acute pancreatitis. 2. Punctate cholelithiasis. No choledocholithiasis. 3. Diffuse hepatic steatosis. Laboratory Results WBC 7.4 10^3/uL (4.0-10.0) 08/23/22 11:07 RBC 5.42 10^6/uL (4.1-5.3) H 08/23/22 11:07 Hgb 15.1 g/dL (11.7-16.6) 08/23/22 11:07 Hct 47.7 % (42.0-52.0) 08/23/22 11:07 MCV 88.0 fl (80-94) 08/23/22 11:07 MCH 27.9 pg (28.0-34.0) L 08/23/22 11:07 MCHC 31.7 g/dL (30.0-36.0) 08/23/22 11:07 RDW 13.2 % (12.1-15.1) 08/23/22 11:07 Plt Count 224 10^3/cmm (130-400) 08/23/22 11:07 MPV 10.2 fL (7.4-10.4) 08/23/22 11:07 Neut % (Auto) 65.1 % 08/23/22 11:07 Lymph % (Auto) 21.9 % 08/23/22 11:07 [place] % (Auto) 10.4 % 08/23/22 11:07 Eos % (Auto) 1.5 % 08/23/22 11:07 Baso % (Auto) 0.7 % 08/23/22 11:07 Neut # (Auto) 4.81 10^3/uL (1.8-7.7) 08/23/22 11:07 Lymph # (Auto) 1.6 10^3/uL (0.8-4.8) 08/23/22 11:07 [place] # (Auto) 0.8 10^3/uL (0.2-0.9) 08/23/22 11:07 Eos # (Auto) 0.1 10^3/uL (0.0-0.8) 08/23/22 11:07 Baso # (Auto) 0.1 10^3/uL (0.0-0.1) 08/23/22 11:07 Nucleated RBC % (auto) 0 % 08/23/22 11:07 Nucleated RBCs # 0.0 /100WBC 08/23/22 11:07 Sodium 137 mmol/L (136-145) 08/23/22 11:07 Potassium 4.1 mmol/L (3.5-5.1) 08/23/22 11:07 Chloride 101 mmol/L (98-107) 08/23/22 11:07 Carbon Dioxide 25 mmol/L (22-29) 08/23/22 11:07 Anion Gap 15.1 (5-19) 08/23/22 11:07 BUN 12 mg/dL (6-20) 08/23/22 11:07 Creatinine 1.0 mg/dL (0.7-1.2) 08/23/22 11:07 GFR Calculation 91.8 mL/min (90-130) 08/23/22 11:07 Glucose 115 mg/dL (65-115) 08/23/22 11:07 Calculated Osmolality 285 mOsm/kg (285-295) 08/23/22 11:07 Calcium 9.6 mg/dL (8.5-10.5) 08/23/22 11:07 Total Bilirubin 0.5 mg/dL (0.15-1.2) 08/23/22 11:07 AST 166 U/L (0-40) H 08/23/22 11:07 ALT 313 U/L (0-41) H 08/23/22 11:07 Alkaline Phosphatase 128 U/L (40-130) 08/23/22 11:07 Total Protein 7.3 g/dL (6.6-8.7) 08/23/22 11:07 Albumin 4.0 g/dL (3.5-5.2) 08/23/22 11:07 Globulin 3.3 g/dL (1.3-4.6) 08/23/22 11:07 Lipase 7230 U/L (13-60) H 08/23/22 11:07 Urine Color Yellow (Yellow) 08/23/22 12:36 Urine Appearance Clear (CLEAR) 08/23/22 12:36 Urine pH 5 (5-7) 08/23/22 12:36 Ur Specific [place] 1.025 (1.005-1.030) 08/23/22 12:36 Urine Protein Neg (Negative) 08/23/22 12:36 Urine Glucose (UA) Norm (Normal) 08/23/22 12:36 Urine Ketones Negative (Negative) 08/23/22 12:36 Urine Blood Neg (Negative) 08/23/22 12:36 Urine Nitrate Negative (Negative) 08/23/22 12:36 Urine Bilirubin Neg (Negative) 08/23/22 12:36 Urine Urobilinogen Norm mg/dL (Negative) 08/23/22 12:36 Ur Leukocyte Esterase Negative (Negative) 08/23/22 12:36 Hepatitis A IgM Ab Non-reactive (Nonreactive) 08/23/22 11:07 Hep Bs Antigen Non-reactive (Nonreactive) 08/23/22 11:07 Hep B Core IgM Ab Non-reactive (Nonreactive) 08/23/22 11:07 Hepatitis C Antibody Non-reactive (Nonreactive) 08/23/22 11:07 Discharge Plan Discharge Patient Disposition: Admitted As Inpatient Admit Provider: Theron Hawkins Clinical Impression: Acute pancreatitis, Cholelithiasis, Transaminitis Condition: Stable Coding Level of Care Code ED Tin Pot Operator for Chg Abhay
[2022-08-23 11:22] LABS: Basophils # 0.1 10^3/uL (0.0-0.1); Basophils % 0.7 %; Eosinophils # 0.1 10^3/uL (0.0-0.8); Eosinophils % 1.5 %; Hematocrit 47.7 % (42.0-52.0); Hemoglobin 15.1 g/dL (11.7-16.6); Lymphocytes # 1.6 10^3/uL (0.8-4.8); Lymphocytes % 21.9 %; Mean Corpuscular HGB Conc 31.7 g/dL (30.0-36.0); Mean Corpuscular Hemoglobin 27.9 pg (28.0-34.0); Mean Platelet Volume 10.2 fL (7.4-10.4); Monocytes # 0.8 10^3/uL (0.2-0.9); Monocytes % 10.4 %; Neutrophils # 4.81 10^3/uL (1.8-7.7); Neutrophils % 65.1 %; Nucleated Red Blood Cells % 0 %; Platelet Count 224 10^3/cmm (130-400); Red Blood Count 5.42 10^6/uL (4.1-5.3); Red Cell Distribution Width 13.2 % (12.1-15.1); White Blood Count 7.4 10^3/uL (4.0-10.0)
[2022-08-23] MEDS: sodium chloride 0.9% 1,000 ML 999 ML IV (11:31)
[2022-08-23] MEDS: ondansetron 2 mg/ML SDV 2 mL 4 MG IVP (11:31)
[2022-08-23] MEDS: morphine 4 mg/mL SDV 1 mL IVP ×2 (11:31→12:26)
[2022-08-23 11:50] LABS: Alanine Aminotransferase 313 U/L (0-41); Alkaline Phosphatase 128 U/L (40-130); Anion Gap 15.1 (5-19); Aspartate Amino Transferase 166 U/L (0-40); Blood Urea Nitrogen 12 mg/dL (6-20); Calcium 9.6 mg/dL (8.5-10.5); Carbon Dioxide 25 mmol/L (22-29); Chloride 101 mmol/L (98-107); Globulin 3.3 g/dL (1.3-4.6); Glomerular Filtration Rate 91.8 mL/min (90-130); Glucose 115 mg/dL (65-115); Osmolality Calculated 285 mOsm/kg (285-295); Potassium 4.1 mmol/L (3.5-5.1); Sodium 137 mmol/L (136-145); Total Bilirubin 0.5 mg/dL (0.15-1.2); Total Protein 7.3 g/dL (6.6-8.7)
[2022-08-23 12:18] LABS: Lipase 7230 U/L (13-60)
--- NOTE | 2022-08-23 12:22 | CT_ITS ---
WS: [id number] CT ABDOMEN AND PELVIS WITH CONTRAST HISTORY: Abdominal pain for 2 to 3 days. TECHNIQUE: Imaging performed of the abdomen and pelvis with IV contrast. Single phase imaging of the abdomen. Coronal and sagittal reformats are submitted. All CT scans at [facility] use at [address] one of these dose optimization techniques: automated exposure control; mA and/or kV adjustment per patient size (includes targeted exams where dose is matched to clinical indication); or iterative re construction. IV CONTRAST: Omnipaque 350; 100 mL IV. Oral contrast: No DLP: 2919.13 mGy.cm COMPARISON: 03/15/2018 Lower thorax: Lung bases are clear. Heart is normal size. No hiatal hernia. Liver/biliary system: Liver is top normal size. Diffuse hepatic steatosis. No bile duct dilatation. N ormal portal vein. There is a very small calcification measuring 3 mm in the expected location of the distal common bile duct. This may be an extruded or nearly extruded common bile duct stone. Gallbladder: Gallbladder mildly distended but probably not hydropic. There is a single stone near the neck of the gallbladder. No adjacent inflammation or enhancement of the wall. Common bile duct is no t dilated. CBD measures 6 mm which is top normal. Pancreas: Very minimal peripancreatic inflammation. No duct dilatation or mass. No pseudocyst. Spleen: Normal size spleen. No mass or infarct. Adrenal glands: Normal. Right kidney: Normal. Left kidney: Normal. Aorta: Normal. Lymphadenopathy: None. Free fluid: No large amount of ascites. There is a small amount of fluid adjacent to the duodenal C-l oop. GI tract: Normally distended stomach. Mild inflammation adjacent to the duodenal C-loop. No obstructi on. Prior appendectomy. No diverticulitis. Abdominal wall: Unremarkable abdominal wall. No hernia. Pelvis: No free fluid or adenopathy within the pelvis. Bones: Nondistended urinary bladder. No pelvic mass. CT/CT abdomen pelvis w con* [id number] IMPRESSION: 1. Cholelithiasis. There is a single stone near the neck of the gallbladder. 2. Very mild peripancreatic edema and a small amount of edema and fluid adjace nt to the duodenal C-loop. Favor mild changes of acute pancreatitis are respons ible for these changes. There is a very small echogenic focus measuring 3 mm in the duodenum. Calcification is closed to the expected location of the ampulla of the Vater. This can could be potentially a recently extruded stone or nearl y extruded stone from the common bile duct. 3. Prior appendectomy. 4. Hepatic steatosis.
[2022-08-23] MEDS: promethazine 25 mg/mL SDV 1 mL IM (12:26)
[2022-08-23 12:55] LABS: Add Urine Microscopic? NO; Charge for UA Resulting for Rev
[2022-08-23] MEDS: iohexol 350 mg/mL 500 mL Btl (per mL) IV (12:55)
[2022-08-23 13:00] LABS: Bilirubin Urine Neg (Negative); Blood Urine Neg (Negative); Glucose Urine UA Norm (Normal); Ketones Urine Negative (Negative); Leukocyte Esterase Urine Negative (Negative); Nitrate Urine Negative (Negative); Protein Urine Neg (Negative); Specific Gravity, Urine 1.025 (1.005-1.030); Urine Appearance Clear (CLEAR); Urine Color Yellow (Yellow); Urobilinogen Urine Norm (Negative); pH Urine 5 (5-7)
--- NOTE | 2022-08-23 14:46 | MRR_ITS ---
PROCEDURE INFORMATION: Exam: MR Abdomen Without Contrast Exam date and time: 08/23/2022 4:28 PM Age: 22 years old Clinical indication: Condition or disease; Other: Acute pncreatitis; Prior surgery; Surgery type: Appendix removed; Patient HX: 2 days of abdomen pain, acute pancreatitis TECHNIQUE: Imaging protocol: Magnetic resonance imaging of the abdomen without contrast. COMPARISON: CT abdomen pelvis w con* [id number] 08/23/2022 12:51 PM FINDINGS: Liver: Diffuse hepatic steatosis. No mass. Gallbladder and bile ducts: Punctate gallstone noted in the gallbladder body. No gallbladder wall thickening or distention. No ductal dilation or choledocholithiasis. Pancreas: Diffusely edematous appearance of the pancreas with peripancreatic inflammatory changes. No ductal dilation. No pancreatic/peripancreatic fluid collection. Spleen: Unremarkable. No splenomegaly. Adrenal glands: Unremarkable. No mass. Kidneys and ureters: Unremarkable. No solid mass. No hydronephrosis. Stomach and bowel: Visualized stomach and intestines are unremarkable. Intraperitoneal space: No free fluid. Vasculature: No abdominal aortic aneurysm. Bones/joints: Unremarkable. Soft tissues: Unremarkable. MR/MR MRCP [id number] IMPRESSION: 1. Sequela of acute pancreatitis. 2. Punctate cholelithiasis. No choledocholithiasis. 3. Diffuse hepatic steatosis.
[2022-08-23] MEDS: morphine 4 mg/mL SDV 1 mL 6 MG IVP ×3 (15:21→22:03)
--- NOTE | 2022-08-23 18:49 | P.HP_ITS ---
Providers/Chief Complaint Primary Care Provider: TAMRA Moralez Chief Complaint: Abd pain History of Present Illness Pleasant 22-year-old man without much past medical history, without active issues, presented due to epigastric/right upper quadrant abdominal pain which has been bothersome to him with nausea and poor appetite and oral intake. He states that he had similar pain about a year ago for which she was evaluated here at which time the pain went away spontaneously. He states that and was doing well up until about 4 days ago at which point the pain returned and bothered him for about 2 days then went away. Then it returned again yesterday. In ER he is found to have pancreatitis, lipase up to 7230. Gallbladder ultra sound without cholelithiasis, limited study. Mild hepatomegaly with diffuse hepatic steatosis. CT abdomen pelvis with single stone near the neck of the gallbladder. Mild peripancreatic edema and small amount of edema and fluid adjacent to the duodenal C-loop. Changes favoring acute pancreatitis. Very small echogenic focus measuring 3 mm in the duodenum. Calcification is close to the expected location of the ampulla of Vater. Could potentially be recently treated stone or newly extruded stone from the common bile duct. Prior appendectomy. Hepatic steatosis. MRCP with sequela of acute pancreatitis, punctate cholelithiasis. No choledocholithiasis. Diffuse hepatic steatosis. He received morphine, antiemetic and fluid bolus. Review of Systems Const: Denies: fever(s), chills, body aches or malaise Eyes: Denies: change in vision, eye discomfort or eye redness ENMT: Denies: throat pain, oral sores or ear or mastoid pain Card: Denies: chest pain, edema, pre-syncope or dyspnea on exertion Resp: Denies: dyspnea, productive cough, change in phlegm color or hemoptysis GI: Reports: abdominal pain and nausea; Denies: diarrhea, constipation, hematochezia or melena : Denies: flank pain, difficulty urinating, urinary frequency or hematuria Musc: Denies: back pain, joint swelling or joint redness Skin/Breast: Denies: rash or new lesions Neuro: Denies: headache(s) Medications/Allergies Home Medications Medication Instructions Recorded Confirmed Last Taken Type No Known Home Medications 08/23/22 08/23/22 Unknown History Allergies Allergy/AdvReac Type Severity Reaction Status Date / Time No Known Allergies Allergy Verified 03/27/21 18:19 PFSH Acute PFSH: Medical History No significant past medical history Surgical History History of appendectomy Family History Other Cholelithiasis Social History Smoking and tobacco status: never smoked Alcohol intake: current Alcohol intake frequency: holidays/special occasions only Alcohol use comment: Last time had 4-5 beers during [employer]. Substance/Drug Use: never Vitals/I&O/Wt Last Vital Signs Temp 97.6 F 08/23/22 10:32 Pulse 84 08/23/22 11:34 Resp 16 08/23/22 17:59 BP 161/119 08/23/22 14:10 Pulse Ox 95 08/23/22 17:59 O2 Del Method 08/23/22 11:34 08/23/22 08/23/22 08/23/22 06:59 14:59 22:59 Intake Total 1000 / 1000 Balance 1000 / 1000 Weight last 48 hrs Weight 158.757 kg Physical Exam Const: COMMON NORMALS: patient oriented x3 and alert GENERAL APPEARANCE: cooperative NUTRITIONAL APPEARANCE: obese morbidly obese ORIENTATION/CONSCIOUSNESS: Yes awake HENMT: COMMON NORMALS: oropharynx normal Neck/C-Spine: COMMON NORMALS: no JVD Resp: COMMON NORMALS: normal respiratory effort and clear to auscultation bilaterally AUSCULTATION: clear to auscultation bilaterally Cardio: COMMON NORMALS: no JVD, regular rhythm, S1 normal heart sound present, S2 normal heart sound present and No murmurs present (Cardio) RHYTHM: regular rhythm HEART SOUNDS: S1 normal heart sound present and S2 normal heart sound present GI: COMMON NORMALS: Normal to inspection, nondistended, normoactive bowel sounds present and Soft to palpation PALPATION: Yes Soft to palpation and Yes Tenderness to palpation present (GI) (Epigastrium, RUQ) Extremity: COMMON NORMALS: no joint enlargement and no pedal edema Neuro: COMMON NORMALS: patient oriented x3 and moves all extremities SENSORIUM/ORIENTATION: Yes alert Skin: COMMON NORMALS: no rashes or lesions noted GENERAL SKIN EXAM: no rashes or lesions noted Data 08/23/22 11:07 08/23/22 11:07 A&P Assessment and plan (1) Acute pancreatitis: Cervical polyp. As above per HPI, possible following extruded gallstone. But discussed with him could be other causes as well. Will need follow-up with gastroenterology, verbalized understanding. Calcium level reviewed looks WNL. For acute episode, keep NPO. IV hydration. At risk of significant withdrawal deficiency with oral intake, nausea and vomiting, IV fluids. Antiemetics, pain medication regimen. PPI. Discussed with him to avoid any EtOH or other triggers so as not to contribute with episodes, although EtOH not likely the cause in this case. Lipase elevated at 7,230. This may be a recurrent episode with possible episode a year ago. Follow-up lipase requested. Discussed with ER physician. ER physician note reviewed. (2) Transaminitis: Pancreatitis palpable follow-up liver parameters requested. (3) Cholelithiasis: Discussed with him. Low-cholesterol diet once resumed. Follow-up with GI, prim crow provider, consideration whether may benefit from cholecystectomy. Plan Morbid obesity: Follow-up with primary provider for weight loss options Attestations Medical Necessity Statement*: Admission of over 2 midnights anticipated for assessment and management of acute pancreatitis. Diagnoses Acute pancreatitis K85.90 Transaminitis R74.01 Cholelithiasis K80.20
[2022-08-23] MEDS: pantoprazole 40 mg SDV IVP (20:08)
[2022-08-23] MEDS: heparin 5,000 unit/mL INJ 1 mL 5000 UNIT SUBCUT (20:08)
[2022-08-23] MEDS: sodium chloride 0.9% 1,000 ML 75 ML IV (20:09)
[2022-08-23 21:03] LABS: Hepatitis A Antibody IgM Non-Reactive (Nonreactive); Hepatitis B Core IgM Non-Reactive (Nonreactive); Hepatitis B Surface Antigen Non-Reactive (Nonreactive); Hepatitis C Virus Antibody Non-Reactive (Nonreactive)
[2022-08-24] VITALS (14 sets, daily range): BP systolic 120–140; BP diastolic 81–89; PULSE 83–109; RESP 12–22; TEMP 36.4–37.5; O2SAT 91–95
[2022-08-24] MEDS: morphine 4 mg/mL SDV 1 mL 6 MG IVP ×5 (02:01→22:34)
[2022-08-24 06:08] LABS: Basophils % 0.3 %; Eosinophils % 0.2 %; Hemoglobin 15.5 g/dL (11.7-16.6); Lymphocytes # 1.3 10^3/uL (0.8-4.8); Lymphocytes % 10.9 %; Mean Corpuscular HGB Conc 31.6 g/dL (30.0-36.0); Mean Corpuscular Hemoglobin 28.5 pg (28.0-34.0); Mean Corpuscular Volume 90.2 fl (80-94); Mean Platelet Volume 10.1 fL (7.4-10.4); Monocytes # 0.9 10^3/uL (0.2-0.9); Monocytes % 7.4 %; Neutrophils # 9.89 10^3/uL (1.8-7.7); Neutrophils % 80.8 %; Nucleated Red Blood Cells % 0 %; Platelet Count 217 10^3/cmm (130-400); Red Blood Count 5.43 10^6/uL (4.1-5.3); Red Cell Distribution Width 13.5 % (12.1-15.1); White Blood Count 12.3 10^3/uL (4.0-10.0)
[2022-08-24 06:27] LABS: Alanine Aminotransferase 262 U/L (0-41); Albumin Level 4.4 g/dL (3.5-5.2); Alkaline Phosphatase 131 U/L (40-130); Anion Gap 16.1 (5-19); Aspartate Amino Transferase 78 U/L (0-40); Blood Urea Nitrogen 9 mg/dL (6-20); Calcium 9.7 mg/dL (8.5-10.5); Carbon Dioxide 26 mmol/L (22-29); Chloride 100 mmol/L (98-107); Globulin 3.7 g/dL (1.3-4.6); Glomerular Filtration Rate 103.7 mL/min (90-130); Glucose 103 mg/dL (65-115); Osmolality Calculated 285 mOsm/kg (285-295); Potassium 4.1 mmol/L (3.5-5.1); Sodium 138 mmol/L (136-145); Total Bilirubin 0.7 mg/dL (0.15-1.2); Total Protein 8.1 g/dL (6.6-8.7)
[2022-08-24 06:41] LABS: Lipase 659 U/L (13-60)
[2022-08-24] MEDS: heparin 5,000 unit/mL INJ 1 mL 5000 UNIT SUBCUT ×2 (08:10→17:58)
[2022-08-24] MEDS: sodium chloride 0.9% 1,000 ML 75 ML IV ×2 (08:53→22:38)
--- NOTE | 2022-08-24 11:05 | PC.CHAP ---
Pastoral Care Encounter/Spiritual Assessment Type of Contact [] Declined wall taper helper visit [] Patient/Family/Request visit [] Outpatient visit [] Follow-up visit [] Physician referral [] Code/Alert [x] Routine visit [] Staff referral [] Actively dying [] Patient sleeping [x] Family support [] [] Out of room [] Palliative care [] [] Receiving care in room [] Pre-surgical visit [] Trauma [] Long length of stay [] ICU visit [] Other: Relational/Emotional Strength [x] Patient feels connected with others/family/visitors/staff [] Distress [] Loneliness/isolation [] Abandonment Spirituality of Patient [] Person of Aishwarya [] Attends Church of their Aishwarya [] Believes in Prayer [] Reads Bible or Faith materials [x] There are Spiritual issues to be addressed Court Orderly Interventions [x] Prayer [x] Active listening [x] Non-anxious presence [x] Spiritual/emotional support [] Crisis/trauma care [] Spiritual counseling [] Bereavement support [] Provided bereavement packet [] Provided Bible/devotional materials [] Provided toy/stuffed animal, coloring book to patient or family member [] Provided Communion [] Anointing/[place] [] Salvation [x] Completed spiritual assessment [] Other: Impact on Illness or Injury [] Angry [] Fearful [] Anxious [] Often cries [] Exhaustion [] Unable to work [] Unable to attend adventism [] Unable to walk/stand [] Unable to read [] Unable to drive [] Unable to eat/drink [] Unable to sleep [] Unable to be with family [] Patient intubated [] Other: Summary Time spent with patient 5 min
--- NOTE | 2022-08-24 17:29 | PM.PN ---
Subjective Subjective: He still having epigastric pain. Earlier he thought he was feeling better, wanted to try some clear liquids. Diet was changed, he tried Jell-O, but pain got worse. Pain not responding to IV morphine alone. Got nauseated. No vomiting. No diarrhea. Vitals/I&O/Wt Last Vital Signs Temp 97.5 F L 08/24/22 16:00 Pulse 83 08/24/22 16:00 Resp 14 08/24/22 16:39 BP 140/89 08/24/22 16:00 Pulse Ox 94 08/24/22 16:00 O2 Del Method 08/24/22 16:00 08/24/22 08/24/22 08/24/22 06:59 14:59 22:59 Intake Total 955 / 955 Balance 955 / 955 Weight last 48 hrs Weight 158.757 kg Physical Exam Const: COMMON NORMALS: patient oriented x3 and alert GENERAL APPEARANCE: cooperative NUTRITIONAL APPEARANCE: obese morbidly obese ORIENTATION/CONSCIOUSNESS: Yes awake HENMT: COMMON NORMALS: oropharynx normal Neck/C-Spine: COMMON NORMALS: no JVD Resp: COMMON NORMALS: normal respiratory effort and clear to auscultation bilaterally AUSCULTATION: clear to auscultation bilaterally Cardio: COMMON NORMALS: no JVD, regular rhythm, S1 normal heart sound present, S2 normal heart sound present and No murmurs present (Cardio) RHYTHM: regular rhythm HEART SOUNDS: S1 normal heart sound present and S2 normal heart sound present GI: COMMON NORMALS: Normal to inspection, nondistended, normoactive bowel sounds present and Soft to palpation PALPATION: Yes Soft to palpation and Yes Tenderness to palpation present (GI) (Epigastrium) Extremity: COMMON NORMALS: no joint enlargement and no pedal edema Neuro: COMMON NORMALS: patient oriented x3 and moves all extremities SENSORIUM/ORIENTATION: Yes alert Skin: COMMON NORMALS: no rashes or lesions noted GENERAL SKIN EXAM: no rashes or lesions noted Data 08/24/22 05:48 08/24/22 05:48 A&P Assessment and plan (1) Acute pancreatitis: Persistent pain, quite bothersome to him, not responding to 6 mg of IV morphine alone. Added to intermittently also give p.o. Dilaudid. Continues to require both. Did not tolerate initial trial of clear liquid diet had to be scaled back to n.p.o. Acute pancreatitis. As above per HPI, possible following extruded gallstone. But discussed with him could be other causes as well. Will need follow-up with gastroenterology, verbalized understanding. Calcium level reviewed looks WNL. For acute episode, keep NPO. IV hydration. At risk of significant withdrawal deficiency with oral intake, nausea and vomiting, IV fluids. Antiemetics, pain medication regimen. PPI. As per up-to-date he drank some water and tolerated. May be feeling slightly better this evening, if so trial again of clear liquids. Discussed with him to avoid any EtOH or other triggers so as not to contribute with episodes, although EtOH not likely the cause in this case. Lipase reviewed, improved down to 659. Reviewed CBC with noted leukocytosis 12.3. He is afebrile. Electrolytes, sodium, potassium are okay. No significant acidosis, bicarb 26, gap 16. This may be a recurrent episode with possible episode a year ago. Follow-up lipase requested. Follow-up lipase. Follow-up CBC (2) Transaminitis: Transaminases reviewed, improving, AST down to 78, ALT down to 262. Pancreatitis palpable follow-up liver parameters requested. Follow-up CMP. (3) Cholelithiasis: Discussed with him. Low-cholesterol diet once resumed. Follow-up with GI, primary provider, consideration whether may benefit from cholecystectomy. Plan Morbid obesity: Follow-up with primary provider for weight loss options Attestations Medical Necessity Statement*: Continue admission for assessment management of pancreatitis, treatment of severe pain requiring parenteral narcotics. Reassessment of electrolytes with bowel rest not tolerating oral intake. Diagnoses Acute pancreatitis K85.90 Transaminitis R74.01 Cholelithiasis K80.20
[2022-08-24] MEDS: pantoprazole 40 mg SDV IVP (17:57)
[2022-08-25] VITALS (8 sets, daily range): BP systolic 119–136; BP diastolic 78–82; PULSE 91–104; RESP 16–18; TEMP 36.7–37.2; O2SAT 92–94
[2022-08-25] MEDS: morphine 4 mg/mL SDV 1 mL 6 MG IVP ×2 (02:45→09:41)
[2022-08-25 06:19] LABS: Basophils # 0.1 10^3/uL (0.0-0.1); Basophils % 0.4 %; Eosinophils # 0.1 10^3/uL (0.0-0.8); Eosinophils % 0.6 %; Hematocrit 44.1 % (42.0-52.0); Hemoglobin 13.9 g/dL (11.7-16.6); Lymphocytes # 1.6 10^3/uL (0.8-4.8); Lymphocytes % 9.5 %; Mean Corpuscular HGB Conc 31.5 g/dL (30.0-36.0); Mean Corpuscular Volume 91.9 fl (80-94); Mean Platelet Volume 10.2 fL (7.4-10.4); Monocytes # 1.5 10^3/uL (0.2-0.9); Monocytes % 8.6 %; Neutrophils # 13.64 10^3/uL (1.8-7.7); Neutrophils % 80.3 %; Nucleated Red Blood Cells % 0 %; Platelet Count 185 10^3/cmm (130-400); Red Cell Distribution Width 13.5 % (12.1-15.1)
[2022-08-25 06:39] LABS: Alanine Aminotransferase 132 U/L (0-41); Albumin Level 3.6 g/dL (3.5-5.2); Alkaline Phosphatase 105 U/L (40-130); Aspartate Amino Transferase 29 U/L (0-40); Blood Urea Nitrogen 8 mg/dL (6-20); Calcium 8.8 mg/dL (8.5-10.5); Carbon Dioxide 23 mmol/L (22-29); Chloride 99 mmol/L (98-107); Globulin 3.7 g/dL (1.3-4.6); Glomerular Filtration Rate 103.7 mL/min (90-130); Glucose 91 mg/dL (65-115); Lipase 79 U/L (13-60); Osmolality Calculated 274 mOsm/kg (285-295); Sodium 133 mmol/L (136-145); Total Bilirubin 1.1 mg/dL (0.15-1.2); Total Protein 7.3 g/dL (6.6-8.7)
[2022-08-25 06:42] LABS: Anion Gap 15.1 (5-19); Potassium 4.1 mmol/L (3.5-5.1)
--- NOTE | 2022-08-25 09:10 | XR_ITS ---
WS: [id number] XR chest 1V portable [id number] REASON FOR EXAM: S/S FINDINGS: There are some minimal ill-defined linear opacities in the right and left lower lung field which may be small areas of atelectasis. The remainder of the chest and the mediastinum are unremarkable. Bony thorax is intact without significant abnormality. XR/XR chest 1V portable [id number] IMPRESSION: Minimal atelectasis in the lung bases.
[2022-08-25] MEDS: heparin 5,000 unit/mL INJ 1 mL 5000 UNIT SUBCUT (09:41)
[2022-08-25 10:39] LABS: Add Urine Microscopic? YES; Bilirubin Urine 1+ (Negative); Blood Urine Neg (Negative); Glucose Urine UA Norm (Normal); Ketones Urine 2+ (Negative); Leukocyte Esterase Urine Negative (Negative); Nitrate Urine Negative (Negative); Protein Urine Trace (Negative); Specific Gravity, Urine 1.025 (1.005-1.030); Urine Appearance Clear (CLEAR); Urine Color Dark Yellow (Yellow); Urobilinogen Urine 4 mg/dL (Negative); pH Urine 5 (5-7)
[2022-08-25 10:40] LABS: Amorphous Sediment Urine 1+ /hpf; Bacteria Urine TRACE /hpf; Mucus Urine 2+ /hpf; Squamous Epithelial Cell Urine 0-4 /hpf (0-5); WBC Urine 0-4 /hpf (0-5)
[2022-08-25 10:41] LABS: Add Urine Culture? No
--- NOTE | 2022-08-25 16:03 | P.DS_ITS ---
Discharge Providers Date of Admission: 08/23/22 18:54 Date of Discharge: August 25, 2022 Attending Provider at Admission: Theron Hawkins Attending Provider at Discharge: Theron Hawkins Primary Care Provider: TAMRA Moralez Diagnoses at Discharge Discharge Diagnosis (1) Acute pancreatitis: Status: Acute (2) Transaminitis: Status: Acute (3) Cholelithiasis: Status: Acute Reason for Visit Reason for Visit: Abd pain Brief History: Pleasant 22-year-old man without much past medical history, without active issues, presented due to epigastric/right upper quadrant abdominal pain which has been bothersome to him with nausea and poor appetite and oral intake.? He states that he had similar pain about a year ago for which she was evaluated here at which time the pain went away spontaneously.? He states that and was doing well up until about 4 days ago at which point the pain returned and bothered him for about 2 days then went away.? Then it returned again yesterday.? In ER he is found to have pancreatitis, lipase up to 7230.? Gallbladder ultrasound without cholelithiasis, limited study.? Mild hepatomegaly with diffuse hepatic steatosis.? CT abdomen pelvis with single stone near the neck of the gallbladder.? Mild peripancreatic edema and small amount of edema and fluid adjacent to the duodenal C-loop.? Changes favoring acute pancreatitis.? Very small echogenic focus measuring 3 mm in the duodenum.? Calcification is close to the expected location of the ampulla of Vater.? Could potentially be recently treated stone or newly extruded stone from the common bile duct.? Prior appendectomy.? Hepatic steatosis. MRCP with sequela of acute pancreatitis, punctate cholelithiasis.? No choledocholithiasis.? Diffuse hepatic steatosis. He received morphine, antiemetic and fluid bolus. Hospital Course Hospital Course He was continued with IV fluid support with bowel rest, required parenteral pain medication which were gradually tapered down with addition of oral Dilaudid, did have persistent pain, initially did not tolerate clear liquid diet and had to be resumed on bowel rest. Subsequently with gradual improvement in symptoms, tolerated oral intake. This morning again in pain, with noted rising leukocytosis, sinus tachycardia, was additionally assessed with chest x-ray, urinalysis, plans for possible reassessment with CT scan, however, with additional time, ambulation, his pain has been improving, he has not required parenteral pain medication since earlier this morning, has been ambulating in the hightower. He is discharged with follow-up with primary provider. Please reassess his condition, discussed with him and refer for follow-up with gastroenterology to further assess cause of pancreatitis. No stone was noted in CBD, however, with sludge, small stones noted in the gallbladder, possible stone at the neck of the gallbladder and CT, and very small echogenic focus in the duodenum location e xpected to be around ampulla of Vater, pancreatitis may have been secondary to a passed stone specialist confirmation would be useful. Consider referral to surgery for cholecystectomy. Please follow-up liver parameters for improving transaminitis. Please also discuss with him options for weight management. Physical Exam Const: COMMON NORMALS: patient oriented x3 and alert GENERAL APPEARANCE: cooperative NUTRITIONAL APPEARANCE: obese morbidly obese ORIENTATION/CONSCIOUSNESS: Yes awake HENMT: COMMON NORMALS: oropharynx normal Neck/C-Spine: COMMON NORMALS: no JVD Resp: COMMON NORMALS: normal respiratory effort and clear to auscultation bilaterally AUSCULTATION: clear to auscultation bilaterally Cardio: COMMON NORMALS: no JVD, regular rhythm, S1 normal heart sound present, S2 normal heart sound present and No murmurs present (Cardio) RHYTHM: regular rhythm HEART SOUNDS: S1 normal heart sound present and S2 normal heart sound present GI: COMMON NORMALS: Normal to inspection, nondistended, normoactive bowel sounds present and Soft to palpation PALPATION: Yes Soft to palpation and Yes Tenderness to palpation present (GI) (Epigastrium) Details: Negative for RUQ Extremity: COMMON NORMALS: no joint enlargement and no pedal edema Neuro: COMMON NORMALS: patient oriented x3 and moves all extremities S ENSORIUM/ORIENTATION: Yes alert Skin: COMMON NORMALS: no rashes or lesions noted GENERAL SKIN EXAM: no rash es or lesions noted Discharge Data Studies Completed and Pending Completed Studies During Hospitalization Category Date Time Status CT abdomen pelvis w con* [id number] Stat Cat Scan 08/23/22 12:22 Completed XR chest 1V portable [id number] ONCE Exams 08/25/22 09:10 Completed MR MRCP [id number] Stat MRI 08/23/22 14:46 Completed US gall bladder [id number] Stat Ultrasound 08/23/22 11:17 Completed Pending at discharge Category Date Time Status Complete Blood Count w/Auto AM LABS Lab 08/26/22 04:00 Ordered Comprehensive Metabolic Panel AM LABS Lab 08/26/22 04:00 Ordered Lipase AM LABS Lab 08/26/22 04:00 Ordered Radiology Impressions Gallbladder Ultrasound 08/23/22 11:17 IMPRESSION: 1. Limited RIGHT upper quadrant evaluation due to body habitus. 2. No cholelithiasis identified. 3. Mild hepatomegaly with diffuse hepatic steatosis. 4. Pancreas not visualized. Abdomen/Pelvis CT 08/23/22 12:22 IMPRESSION: 1. Cholelithiasis. There is a single stone near the neck of the gallbladder. 2. Very mild peripancreatic edema and a small amount of edema and fluid adjacent to the duodenal C-loop. Favor mild changes of acute pancreatitis are responsible for these changes. There is a very small echogenic focus measuring 3 mm in the duodenum. Calcification is closed to the expected location of the ampulla of the Vater. This can could be potentially a recently extruded stone or nearly extruded stone from the common bile duct. 3. Prior appendectomy. 4. Hepatic steatosis. Cholangiopancreatography MRI 08/23/22 14:46 IMPRESSION: 1. Sequela of acute pancreatitis. 2. Punctate cholelithiasis. No choledocholithiasis. 3. Diffuse hepatic steatosis. Chest X-Ray 08/25/22 09:10 IMPRESSION: Minimal atelectasis in the lung bases. Laboratory Results WBC 17.0 10^3/uL (4.0-10.0) H 08/25/22 06:07 RBC 4.80 10^6/uL (4.1-5.3) 08/25/22 06:07 Hgb 13.9 g/dL (11.7-16.6) 08/25/22 06:07 Hct 44.1 % (42.0-52.0) 08/25/22 06:07 MCV 91.9 fl (80-94) 08/25/22 06:07 MCH 29.0 pg (28.0-34.0) 08/25/22 06:07 MCHC 31.5 g/dL (30.0-36.0) 08/25/22 06:07 RDW 13.5 % (12.1-15.1) 08/25/22 06:07 Plt Count 185 10^3/cmm (130-400) 08/25/22 06:07 MPV 10.2 fL (7.4-10.4) 08/25/22 06:07 Neut % (Auto) 80.3 % 08/25/22 06:07 Lymph % (Auto) 9.5 % 08/25/22 06:07 Weld % (Auto) 8.6 % 08/25/22 06:07 Eos % (Auto) 0.6 % 08/25/22 06:07 Baso % (Auto) 0.4 % 08/25/22 06:07 Neut # (Auto) 13.64 10^3/uL (1.8-7.7) H 08/25/22 06:07 Lymph # (Auto) 1.6 10^3/uL (0.8-4.8) 08/25/22 06:07 Weld # (Auto) 1.5 10^3/uL (0.2-0.9) H 08/25/22 06:07 Eos # (Auto) 0.1 10^3/uL (0.0-0.8) 08/25/22 06:07 Baso # (Auto) 0.1 10^3/uL (0.0-0.1) 08/25/22 06:07 Nucleated RBC % (auto) 0 % 08/25/22 06:07 Nucleated RBCs # 0.0 /100WBC 08/25/22 06:07 Sodium 133 mmol/L (136-145) L 08/25/22 06:07 Potassium 4.1 mmol/L (3.5-5.1) 08/25/22 06:07 Chloride 99 mmol/L (98-107) 08/25/22 06:07 Carbon Dioxide 23 mmol/L (22-29) 08/25/22 06:07 Anion Gap 15.1 (5-19) 08/25/22 06:07 BUN 8 mg/dL (6-20) 08/25/22 06:07 Creatinine 0.9 mg/dL (0.7-1.2) 08/25/22 06:07 GFR Calculation 103.7 mL/min (90-130) 08/25/22 06:07 Glucose 91 mg/dL (65-115) 08/25/22 06:07 Calculated Osmolality 274 mOsm/kg (285-295) L 08/25/22 06:07 Calcium 8.8 mg/dL (8.5-10.5) 08/25/22 06:07 Total Bilirubin 1.1 mg/dL (0.15-1.2) 08/25/22 06:07 AST 29 U/L (0-40) 08/25/22 06:07 ALT 132 U/L (0-41) H 08/25/22 06:07 Alkaline Phosphatase 105 U/L (40-130) 08/25/22 06:07 Total Protein 7.3 g/dL (6.6-8.7) 08/25/22 06:07 Albumin 3.6 g/dL (3.5-5.2) 08/25/22 06:07 Globulin 3.7 g/dL (1.3-4.6) 08/25/22 06:07 Lipase 79 U/L (13-60) H 08/25/22 06:07 Urine Color Dark yellow (Yellow) 08/25/22 09:48 Urine Appearance Clear (CLEAR) 08/25/22 09:48 Urine pH 5 (5-7) 08/25/22 09:48 Ur Specific [place] 1.025 (1.005-1.030) 08/25/22 09:48 Urine Protein Trace (Negative) 08/25/22 09:48 Urine Glucose (UA) Norm (Normal) 08/25/22 09:48 Urine Ketones 2+ (Negative) H 08/25/22 09:48 Urine Blood Neg (Negative) 08/25/22 09:48 Urine Nitrate Negative (Negative) 08/25/22 09:48 Urine Bilirubin 1+ (Negative) H 08/25/22 09:48 Urine Urobilinogen 4 mg/dL (Negative) H 08/25/22 09:48 Ur Leukocyte Esterase Negative (Negative) 08/25/22 09:48 Urine RBC None /hpf (0-2) 08/25/22 09:48 Urine WBC 0-4 /hpf (0-5) H 08/25/22 09:48 Ur Squamous Epith Cells 0-4 /hpf (0-5) H 08/25/22 09:48 Amorphous Sediment 1+ /hpf 08/25/22 09:48 Urine Bacteria Trace /hpf (NONE) 08/25/22 09:48 Urine Mucus 2+ /hpf 08/25/22 09:48 Hepatitis A IgM Ab Non-reactive (Nonreactive) 08/23/22 11:07 Hep Bs Antigen Non-reactive (Nonreactive) 08/23/22 11:07 Hep B Core IgM Ab Non-reactive (Nonreactive) 08/23/22 11:07 Hepatitis C Antibody Non-reactive (Nonreactive) 08/23/22 11:07 Vitals Last Vital Signs Temp 98.1 F 08/25/22 12:00 Pulse 91 08/25/22 13:50 Resp 18 08/25/22 13:50 BP 130/82 08/25/22 12:00 Pulse Ox 93 08/25/22 13:50 O2 Del Method 08/25/22 13:50 Discharge Plan Discharge Patient Disposition: Home Condition: Stable Prescriptions: New acetaminophen 325 mg Tablet 650 mg PO Q6H PRN (Reason: Mild/Mod Pain Or Temp >/= 101) Qty: 60 2RF hydromorphone 4 mg Tablet 4 mg PO Q6H PRN (Reason: Severe Pain) Qty: 12 0RF Discharge Orders: Discharge Order (Routine); Ordered 08/25/22 Ordered By: Theron Hawkins Referrals: Dr Gadiel Sterling at [facility] [Other] - 09/03/22 8:30 am Discharge Diet: Advance as tolerated, Low Cholesterol and Low Fat Discharge Activity: Increase activity as tolerated Patient Instructions: Hydromorphone (By mouth), Pancreatitis (GEN), Gallstones (GEN), Obesity and Weight Control, Opioid Safety Activity Restrictions/Additional Instructions: Follow-up with your primary doctor for assessment after pancreatitis. Assessment of biliary sludge/cholelithiasis. Referral to gastroenterology, possibly referral for surgery for gallbladder removal if pancreatitis confirmed by specialist to be due to gallstone. Avoid any alcohol. Decrease and stop pain medications as your pain is going away. Avoid long-term opioid use due to risk of dependence and other associated risks. Have your primary provider recheck your liver parameters. Follow-up with your primary doctor also to discuss options to help with weight management. Discharge Attestations Time Spent in Discharge Care*: greater than 30 min Quality Metrics Clinical Quality Measures [ No reported AMI, CVA or VTE this stay] Coding Level of Care Code Acute Code for Chg Fwd Diagnoses Acute pancreatitis K85.90 Transaminitis R74.01 Cholelithiasis K80.20
== END 2022-08-25 17:01 | disposition home or self-care (01) | DRG 439 ==
LOC: ER 15:02 → MEDSURG 18:54
PROVIDERS: Admitting Provider Internal Medicine; Emergency Provider Family Medicine; PCP Nurse Practitioner Family; Visit Provider Internal Medicine
DX: K85.10 Biliary acute pancreatitis without necrosis or infection (principal); Z68.42 Body mass index [BMI] 45.0-49.9, adult; K80.20 Calculus of gallbladder without cholecystitis without obstruction; R74.01 Elevation of levels of liver transaminase levels; K76.0 Fatty (change of) liver, not elsewhere classified; R16.0 Hepatomegaly, not elsewhere classified; E66.01 Morbid (severe) obesity due to excess calories
CPT/HCPCS: 36415; 71045; 74177; 74181; 76705; 80053; 80074; 81001; 81003; 83690; 85025; 93005; 96372; 96374; 96375; 96376; 99285; C9113; J1644; J2270; J2405; J2550; J7030; Q9967